=== PATIENT | male | born 1965 | race Caucasian/White ===

== ENCOUNTER 2016-12-28 10:10 | Emergency (ER) | payer MEDICAID ==
[~2016-12-28] VITALS: Ht 152.4 cm; Wt 89.0 kg
[~2016-12-28 10:10] MED LIST: AMLO5TAB4 PO; CLON-412 PO; LORA1TAB PO
[2016-12-28 10:15] VITALS: Ht 152.4 cm; Wt 89.0 kg
[2016-12-28] MEDS ORDERED: TRAM50TA2 PO (11:20)
[2016-12-28] MEDS ORDERED: HYDROCODONE/APAP (5/325) TAB PO ONE (12:00)
--- NOTE | 2016-12-28 13:50 | ERD ---
ER Documentation Chief Complaint Date/Time DATE: 12/28/16 TIME: 13:38 Chief Complaint RECURRENT BACK PAIN HPI 51-year-old male complaining of lower back pain. Patient stated that he have chronic low back pain with sciatica and herniated disc. He is scheduled for surgery in 4 month. 3 days ago he fell down a couple steps stairs while he was moving. The pain had gotten worse since then. States that his back "seized up " yesterday, he was unable to walk. He was able to control with ibuprofen prior to the fall. He wants stronger pain medication now. Patient stated that his primary provider, Dr. Ibarra, is on vacation until 3 days from now. He wants to get a prescription of [place] until he can see his PCP. Denies fever or chills. Denies saddle paresthesia. Denies bowel or bladder dysfunction. ROS All systems reviewed and are negative except as per history of present illness. Medications Home Meds Active Scripts Tramadol HCl (Tramadol HCl) 50 Mg Tablet, 50 MG PO Q6 Y for PAIN, #5 TAB Prov:AYDIN DESHPANDE [employer] 12/28/16 Lorazepam* (Lorazepam*) 1 Mg Tablet, 1 MG PO Q8H Y for ANXIETY, #10 TAB Prov:NILTON FAJARDO DO 08/03/15 Reported Medications Amlodipine Besylate* (Norvasc*) 5 Mg Tablet, 5 MG PO DAILY, TAB 01/13/14 Clonazepam* (Klonopin*) 1 Mg Tablet, 4 MG PO DAILY, TAB 01/13/14 Allergies Allergies: Coded Allergies: neomycin (Verified Allergy, Mild, REDNESS., 12/28/16) PMhx/Soc History of Surgery: No Anesthesia Reaction: No Hx Neurological Disorder: No Hx Respiratory Disorders: No Hx Cardiac Disorders: No Hx Psychiatric Problems: No Hx Miscellaneous Medical Probl: Yes (sciatica; herniated disk) Hx Alcohol Use: No Hx Substance Use: No Hx Tobacco Use: No Smoking Status: Never smoker Physical Exam Vitals Vital Signs Date Time Temp Pulse Resp B/P Pulse Ox O2 Delivery O2 Flow Rate FiO2 12/28/16 10:15 97.8 87 18 150/80 99 Physical Exam General: Well-developed, well-nourished, conscious and coherent, in no distress Skin: Warm and dry without rash, good texture and turgor Head: Normocephalic without evidence of trauma Eyes: Sclera and conjunctivae normal; pupils equal, round, and reactive to light; extraocular movements are intact Neck: Supple without meningismus or adenopathy. Carotids are equal. Trachea midline. No bruits or JVD Chest: Normal AP diameter. Good expansion without retractions. Nontender. Lungs are clear to auscultate bilaterally with good tidal volume Heart: Regular rate and rhythm. No murmur, rub, or gallops heard Abdomen: Soft and nontender without masses, guarding, or rebound. Bowel sounds are active. No hepatosplenomegaly Back: Without spinal or CVA tenderness. No paraspinal muscle spasm or tenderness. Leg raise positive bilaterally 1 elevation. Pelvis: Nontender to palpation and stable to compression Extremities: Full range of motion. Good strength bilaterally. No clubbing, cyanosis, or edema. Peripheral pulses are intact. Sensation intact Neuro: Alert and oriented 4, GCS 15. Cranial nerves grossly intact. Motor and sensory exams nonfocal. Moves all extremities. Speech clear. Gait normal Results 24 hrs Current Medications Medications (Trade) Dose Ordered Sig/Andreina Route PRN Reason Start Time Stop Time Status Last Admin Dose Admin Acetaminophen/ Hydrocodone Bitart ([place] (5/325)) 1 tab ONCE ONCE PO 12/28/16 12:00 12/28/16 12:01 DC 12/28/16 12:15 Procedures/MDM Well-appearing 51-year-old male complaining of acute on chronic low back pain. View of patient's medical records indicate that patient has been a frequent visitor of this ED in the past, but had a prior complaint of back pain before. Patient indicated that he could hardly walk because the back pain. However, he is observed to be walking with a normal gait. Physical exam did not reveal any back tenderness midline or otherwise. I have high suspicion for malingering behavior. Cures database also reviewed. Although there is only one narcotic pain prescription (tramadol) in the last 12 month, patient had been obtaining prescriptions from multiple providers. Patient's stated PCP is not amount those providers. Patient is given 1 tab of [place] 5/325 in the ED, and prescription of 5 tablets of tramadol. Patient appears well, stable for discharge and outpatient management. Medical decision making shared with patient and family. Education provided to patient and family. Patient and family expressed understanding of the plan. Medications on discharge: Tramadol. Follow-up: Primary care provider in 2-3 days or return to ED if worse. Disclaimer: Inadvertent spelling and grammatical errors are likely due to EHR/ dictation software use and do not reflect on the overall quality of patient care. Also, please note that the electronic time recorded on this note does not necessarily reflect the actual time of the patient encounter. Departure Diagnosis: Primary Impression: Back pain Back pain location: back pain in unspecified location Chronicity: chronic Back pain laterality: unspecified Qualified Code: M54.9 - Chronic back pain, unspecified back location, unspecified back pain laterality Condition: Stable Patient Instructions: Self-Care for Low Back Pain, Back Care Tips Referrals: [facility] YOU HAVE RECEIVED A MEDICAL SCREENING EXAM AND THE RESULTS INDICATE THAT YOU DO NOT HAVE A CONDITION THAT REQUIRES URGENT TREATMENT IN THE EMERGENCY DEPARTMENT. FURTHER EVALUATION AND TREATMENT OF YOUR CONDITION CAN WAIT UNTIL YOU ARE SEEN IN YOUR DOCTORS OFFICE WITHIN THE NEXT 1-2 DAYS. IT IS YOUR RESPONSIBILITY TO MAKE AN APPOINTMENT FOR FOLOW-UP CARE. IF YOU HAVE A PRIMARY DOCTOR --you should call your primary doctor and schedule an appointment IF YOU DO NOT HAVE A PRIMARY DOCTOR YOU CAN CALL OUR PHYSICIAN REFERRAL HOTLINE AT IF YOU CAN NOT AFFORD TO SEE A PHYSICIAN YOU CAN CHOSE FROM THE FOLLOWING [facility] CLINICS [facility] [address] [facility]. [facility] [address] [facility] [facility] [address] [facility] [facility] [address] [facility]. [facility] [address]. [facility]. [address] Additional Instructions: Call your primary care doctor TOMORROW for an appointment during the next 2-3 days.See the doctor sooner or return here if your condition worsens before your appointment time. AYDIN DESHPANDE NP Dec 28, 2016 13:49
== END 2016-12-28 12:49 | disposition home or self-care (01) ==
LOC: FTE 10:10
DX: M54.5 Low back pain (principal)
CPT/HCPCS: Z7502; Z7610; 99283